=== PATIENT | female | born 1930 | race Caucasian/White ===

== ENCOUNTER 2017-02-14 21:12 | Emergency (ER) | payer MEDICARE, BC, OTHER ==
[~2017-02-14] VITALS: Ht 152.4 cm; Wt 58.1 kg
[~2017-02-14 21:12] MED LIST: ACET160O49 PO; ACET500T68 PO; ALBU18HF IH; AMLO5TAB4 PO; ASCO500T2 PO; ASPI325T8 PO; CALC1TAB PO; CALC600T PO; CEFU500T46 PO; FURO20TA3 PO; GABA-586 PO; GABA600T2 PO; GUAI600T47 PO; IPRA3AMP IH; LEVO50TA5 PO; LEVO75TA5 PO; MAGN400T22 PO; MAGN500C10 PO; METF500T PO; METF500T4 PO; METO10TA81 PO; METO5TAB PO; MULT-496 PO; MUPI15CR TP; POTA20TA12 PO; POTA99TA10 PO; PRAV40TA2 PO; RIVA20TA2 PO; ROPI0.5T PO; TIOT18CA IH; TOLT2CAP PO; TOLT4CAP PO; TRAM50TA PO; VALS1TAB22 PO; XOPENEX HFA15 GM IH; [UNRECOGNIZED DRUG - CODE] TP; [UNRECOGNIZED DRUG - REMARK]
[2017-02-14] MEDS: IV NORMAL SALINE 1,000ML 1,000 ML IV SCH ×2 (21:26→22:28)
[2017-02-14 21:44] LABS: BASO % 1 % (0-3); EOS % 0 % (0-3); HEMOGLOBIN 9.2 g/dL (12.0-15.5); LYMPH # 0.3 x10^3/uL (1.0-4.8); LYMPH % 5 % (24-48); MEAN CORPUSCULAR HEMOGLOBIN 37 pg (25-35); MEAN CORPUSCULAR HGB CONC 35 g/dL (31-37); MEAN CORPUSCULAR VOLUME 105 fL (79-100); MONO # 0.4 x10^3/uL (0.0-1.1); MONO % 6 % (0-9); NEUT # 5.4 x10^3uL (1.8-7.7); NEUT % 88 % (31-73); PLATELET COUNT 99 x10^3/uL (140-400); RED BLOOD COUNT 2.47 x10^6/uL (3.50-5.40); RED CELL DISTRIBUTION WIDTH 18.7 % (11.5-14.5); WHITE BLOOD COUNT 6.1 x10^3/uL (4.0-11.0)
--- NOTE | 2017-02-14 21:53 | PHYS DOC ---
Past History Past Medical History: Cancer, Diabetes, High Cholesterol, Hypertension, Hypothyroid, Other Past Surgical History: Hysterectomy, Other Smoking: Non-smoker Alcohol Use: Rarely Drug Use: None Adult General Chief Complaint Chief Complaint: bleeding from tracheostomy HPI HPI Patient is a 87 year old female who presents with complaint of bleeding from the mouth and tracheostomy site. The patient was brought to the emergency department by EMS after patient reportedly had a loss of approximately 300 mL of blood from her mouth and tracheostomy site. EMS diverted to the emergency department here at [facility] due to concern for patient being unstable. Upon arrival to the emergency department, patient has clotted blood in her mouth and near her tracheostomy. The patient is nonverbal but does follow commands. 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 Patient's son arrived to the emergency department and was able to provide additional history. Patient had her tracheostomy placed on January 13, 2017 at [facility]. Patient has not had any problems postoperatively until today. Patient has not had any reported fevers. Patient denies pain when asked. Review of Systems Review of Systems Constitutional: Denies fever or chills [] Eyes: Denies change in visual acuity, redness, or eye pain [] HENT: Denies nasal congestion or sore throat [] Respiratory: Shortness of breath, coughing up blood [] Cardiovascular: Denies chest pain [] GI: Denies abdominal pain, nausea, vomiting, bloody stools or diarrhea [] : Denies dysuria or hematuria [] Musculoskeletal: Denies back pain or joint pain [] Integument: Denies rash or skin lesions [] Neurologic: Denies headache, focal weakness or sensory changes [] Current Medications Current Medications Current Medications Medications (Trade) Dose Ordered Sig/Neil Start Time Stop Time Status Last Admin Dose Admin Sodium Chloride 1,000 ml @ 1,000 mls/hr Q1H 02/14/17 22:00 02/14/17 22:59 Allergies Allergies Allergies Coded Allergies Type Severity Reaction Last Updated Verified No Known Drug Allergies 11/16/15 No Physical Exam Physical Exam Constitutional: Alert, afebrile, follows commands, vital signs are stable. [] HENT: Normocephalic, atraumatic, bilateral external ears normal, oropharynx with clotted blood, no active bleeding, no oral exudates, nose normal. [] Eyes: PERRLA, EOMI, conjunctiva normal, no discharge. [] Neck: Tracheostomy midline with thick blood and secretions, no tenderness, supple, no stridor. [] Cardiovascular:Heart rate regular rhythm, no murmur [] Lungs & Thorax: Coarse transmitted upper airway sounds, good air movement bilaterally, chest nontender to palpation [] Abdomen: Bowel sounds normal, soft, no tenderness, no masses, no pulsatile masses. [] Skin: Warm, dry, no erythema, no rash. [] Extremities: No tenderness, no cyanosis, no clubbing, ROM intact, no edema. [] Neurologic: Alert and oriented X 3, normal motor function, normal sensory function, no focal deficits noted. [] Current Patient Data Lab Results Laboratory Tests Test 02/14/17 21:28 White Blood Count 6.1 x10^3/uL Red Blood Count 2.47 x10^6/uL Hemoglobin 9.2 g/dL Hematocrit 26.0 % Mean Corpuscular Volume 105 fL Mean Corpuscular Hemoglobin 37 pg Mean Corpuscular Hemoglobin Concent 35 g/dL Red Cell Distribution Width 18.7 % Platelet Count 99 x10^3/uL Neutrophils (%) (Auto) 88 % Lymphocytes (%) (Auto) 5 % Monocytes (%) (Auto) 6 % Eosinophils (%) (Auto) 0 % Basophils (%) (Auto) 1 % Neutrophils # (Auto) 5.4 x10^3uL Lymphocytes # (Auto) 0.3 x10^3/uL Monocytes # (Auto) 0.4 x10^3/uL Eosinophils # (Auto) 0.0 x10^3/uL Basophils # (Auto) 0.0 x10^3/uL Sodium Level 129 mmol/L Potassium Level 5.4 mmol/L Chloride Level 95 mmol/L Carbon Dioxide Level 33 mmol/L Anion Gap 1 Blood Urea Nitrogen 59 mg/dL Creatinine 0.8 mg/dL Estimated GFR (Cockcroft-Gault) 68.0 BUN/Creatinine Ratio 74 Glucose Level 115 mg/dL Calcium Level 9.0 mg/dL Magnesium Level 1.8 mg/dL Total Bilirubin 0.9 mg/dL Aspartate Amino Transf (AST/SGOT) 28 U/L Alanine Aminotransferase (ALT/SGPT) 29 U/L Alkaline Phosphatase 83 U/L Total Protein 6.6 g/dL Albumin 3.0 g/dL Albumin/Globulin Ratio 0.8 Current Medications Medications (Trade) Dose Ordered Sig/Neil Route PRN Reason Start Time Stop Time Status Last Admin Dose Admin Sodium Chloride 1,000 ml @ 1,000 mls/hr Q1H IV 02/14/17 22:00 02/14/17 22:59 EKG EKG Initial rhythm strip: Heart rate 86, sinus rhythm, no ectopy [] Radiology/Procedures Radiology/Procedures One view AP chest x-ray interpreted by me: No pulmonary infiltrates, left lower lobe scarring present on previous chest x-ray, normal cardiac silhouette [] Course & Med Decision Making Course & Med Decision Making Pertinent Labs and Imaging studies reviewed. (See chart for details) Patient's mouth and tracheostomy tube were suctioned in the emergency department. Patient's vital signs are stable at this time. Patient is not displaying any further active bleeding in the emergency department. The site of patient's bleeding is unclear at this time. Possible sources could be from the patient's carcinoma or possibly from the tracheostomy. Due to absence of ENT services here at [facility], the patient will need transfer to a higher level of care for further evaluation and treatment. I called [facility] and spoke with Dr. Joseph who accepted care patient for transfer. The patient will be transferred by ground EMS as a direct admit. Critical care time excluding procedures: 45 minutes Dragon Disclaimer Dragon Disclaimer This chart was dictated in whole or in part using Voice Recognition software in a busy, high-work load, and often noisy Emergency Department environment. It may contain unintended and wholly unrecognized errors or omissions. Departure Departure: Impression: Primary Impression: Hemorrhage from tracheostomy stoma Additional Impression: Squamous cell carcinoma of tongue Disposition: XFER OTHER Condition: GUARDED Referrals: PAULINA ATKINSON MD (PCP) Problem Qualifiers JERALD GUARDADO MD Feb 14, 2017 21:53
[2017-02-14 21:54] LABS: ALBUMIN/GLOBULIN RATIO 0.8 (1.0-1.7); CREATININE 0.8 mg/dL (0.6-1.0); MAGNESIUM 1.8 mg/dL (1.8-2.4); POTASSIUM 5.4 mmol/L (3.5-5.1); TOTAL BILIRUBIN 0.9 mg/dL (0.2-1.0); TOTAL PROTEIN 6.6 g/dL (6.4-8.2)
[2017-02-14 23:22] VITALS: BP 134/58
[2017-02-14 23:36] LABS: PLT ESTIMATE DECREASED (ADEQUATE)
[2017-02-14 23:37] LABS: ANISOCYTOSIS MOD; HYPOCHROMIA MOD
--- NOTE | 2017-02-15 08:24 | RAD ---
EXAM: Chest one view. HISTORY: Shortness of breath, cough, hemoptysis. COMPARISON: 10/19/2015. FINDINGS: A frontal view of the chest is obtained. A tracheostomy appliance is in expected position. A right-sided port catheter has its tip in the superior cavoatrial junction. A gastrostomy catheter is noted. Hyperinflation is consistent with chronic obstructive pulmonary disease. An opacity along the left heart border has been present chronically and is consistent with a fat pad or lingular scarring. There is no pneumothorax or pleural effusion. The heart is mildly enlarged. There are atherosclerotic calcifications of the aorta. There are calcified granulomas in the left base and left hilar lymph nodes. IMPRESSION: 1. Chronic obstructive pulmonary disease. Chronic lingular scarring. No acute infiltrate. 2. Mild cardiomegaly.
== END 2017-02-14 23:20 | disposition short-term general hospital (02) ==
LOC: ER 21:12
DX: J95.01 Hemorrhage from tracheostomy stoma (principal); C02.9 Malignant neoplasm of tongue, unspecified; E03.9 Hypothyroidism, unspecified; E11.9 Type 2 diabetes mellitus without complications; E78.00 Pure hypercholesterolemia, unspecified; I10 Essential (primary) hypertension; Z93.0 Tracheostomy status
CPT/HCPCS: 36415; 71010; 80053; 83735; 85008; 85027; 85610; 85730; 86850; 86900; 86901; 96360; 96361; 99291-25; J7030